=== PATIENT | female | born 1950 | race Caucasian/White ===

== ENCOUNTER → 2016-07-19 17:00 | Outpatient (CLI) | payer MEDICARE, OTHER ==
[2013-07-06 11:46] VITALS: BMI 23.9
[~2016-07-19 17:00] MED LIST: CELEXA20 MG PO; CLARITIN-D1 TAB.SR . PO; ESTRACE1 MG PO; MULTIPLE VITAMI1 TA1 PO; TOPROL XL25 MG PO
== END | disposition home or self-care (01) ==
LOC: D.MAMMO 16:00
DX: Z12.31 Encounter for screening mammogram for malignant neoplasm of breast (principal)

== ENCOUNTER → 2017-07-23 16:33 | Outpatient (CLI) | payer MEDICARE, OTHER ==
[2013-07-06 11:46] VITALS: BMI 23.9
== END | disposition home or self-care (01) ==
LOC: D.MAMMO 11:00
DX: Z12.31 Encounter for screening mammogram for malignant neoplasm of breast (principal)

== ENCOUNTER 2018-08-28 12:30 | Outpatient (CLI) | payer MEDICARE, OTHER ==
[2013-07-06 11:46] VITALS: BMI 23.9
== END 2018-08-28 13:00 | disposition home or self-care (01) ==
LOC: D.MAMMO 12:30
PROVIDERS: ATTEND Family Medicine
DX: Z12.31 Encounter for screening mammogram for malignant neoplasm of breast (principal)

== ENCOUNTER 2019-09-01 13:30 | Outpatient (CLI) | payer MEDICARE, OTHER ==
[2013-07-06 11:46] VITALS: BMI 23.9
== END 2019-09-01 14:30 | disposition home or self-care (01) ==
LOC: D.MAMMO 13:30
PROVIDERS: ATTEND Family Medicine
DX: Z12.31 Encounter for screening mammogram for malignant neoplasm of breast (principal)

== ENCOUNTER 2020-08-19 14:00 | Outpatient (CLI) | payer MEDICARE, OTHER ==
[2013-07-06 11:46] VITALS: BMI 23.9
== END 2020-08-19 23:59 | disposition home or self-care (01) ==
LOC: D.MAMMO 14:00
PROVIDERS: ATTEND Family Medicine
DX: Z12.31 Encounter for screening mammogram for malignant neoplasm of breast (principal)